=== PATIENT | male | born 1935 | race Caucasian/White ===

== ENCOUNTER 2022-12-26 14:00 | Outpatient (RCR) | payer MEDICARE, SELFPAY | END 2022-12-26 14:05 | disposition home or self-care (01) | LOC: PT 14:00 | PROVIDERS: PCP Family Medicine; Visit Provider Family Medicine | DX: L97.911 Non-pressure chronic ulcer of unspecified part of right lower leg limited to breakdown of skin (principal) | CPT/HCPCS: 97140; 97162; 97597 ==